=== PATIENT | female | born 1980 | race Asian ===

== ENCOUNTER → 2024-12-29 | Outpatient (CLI) | payer MEDICAID, SELFPAY ==
--- NOTE | 2024-12-29 10:00 | XR_ITS ---
Examination: Upper GI series with KUB Esophagram standard Fluoroscopy AP spot fluoroscopic films of the esophagus and stomach Exam date and time: December 29, 2024 at 0950 hours INDICATIONS: Heartburn gastroesophageal reflux 6 months TECHNIQUE AND FINDINGS: Conventional Underwriter AP supine abdomen nonobstructive bowel gas pattern Patient swallowed thin barium with 18 spot fluoroscopic films of the esophagus stomach and duodenal bulb Fluoroscopy 0.1 minute radiation dose 62.62 milligray Primary peristaltic esophageal waves Moderate intermittent gastroesophageal reflux No stricture the gastroesophageal junction No gastric mass deformity or ulceration Duodenal bulb expands symmetrically IMPRESSION: Moderate intermittent gastroesophageal reflux No stricture at the gastroesophageal junction No gastric mass deformity or ulceration
== END | disposition home or self-care (01) ==
PROVIDERS: PCP Specialist; Referring Provider Specialist; Visit Provider Specialist
DX: K21.9 Gastro-esophageal reflux disease without esophagitis (principal)
CPT/HCPCS: 74240

== ENCOUNTER → 2025-02-20 | Outpatient (CLI) | payer MEDICAID, SELFPAY ==
--- NOTE | 2025-02-20 | XR_ITS ---
Examination: PA lateral chest 2 views Technique: Upright PA lateral chest 2 views Exam date and time: February 20, 2025 1159 hrs. Indications: Preop Findings: Normal heart size. Lungs are clear. The osseous structures are intact Impression: No active disease
== END | disposition home or self-care (01) ==
LOC: CDIM 10:52
PROVIDERS: PCP Physician Assistant; Referring Provider Physician Assistant; Visit Provider Physician Assistant
DX: Z01.818 Encounter for other preprocedural examination (principal)
CPT/HCPCS: 71046